=== PATIENT | male | born 1975 | race Caucasian/White ===

== ENCOUNTER 2016-10-03 17:28 | Emergency (ER) | payer OTHER ==
[~2016-10-03] VITALS: Ht 185.4 cm; Wt 115.5 kg
[~2016-10-03 17:28] MED LIST: ABILIFY5 MG PO; AMBIEN10 MG PO; AMITRIPTYLINE H50 MG PO; BACTRIM,SEPT1 TABLET PO; BUPROPION HCL150 M2 PO; BUSPAR10 MG PO; CYMBALTA60 MG PO; DEPAKOTE ER250 MG PO; DEPAKOTE250 MG PO; DEPAKOTE500 MG PO; DILAUDID2 MG PO; EFFEXOR75 MG PO; ESCITALOPRAM OX20 MG PO; FLEXERIL10 MG PO; HYDROCODON-ACE1 EAC7 PO; HYDROCODON-ACE1 EAC9 PO; IMITREX100 MG PO; LEVAQUIN750 MG PO; LEVOTHYROXINE200 MC1 PO; LEVOTHYROXINE50 MCG PO; LEXAPRO20 MG PO; LIBRIUM25 MG PO; LISINOPRIL PO; LISINOPRIL10 MG PO; LO-DOSE ASPIRIN81 M1 PO; LO-DOSE ASPIRIN81 M2 PO; LORTAB 5-325 M1 EACH PO; LYRICA50 MG; MARTINIC1 EACH PO; METHYLPREDNISOLO4 M1 PO; MORPHINE SULFAT15 M1 PO; MOTRIN400 MG PO; MOTRIN600 MG PO; MOTRIN800 MG PO; MS CONTIN,ORAMO15 M1 PO; MULTIVITAMIN1 EAC1 PO; NAPROSYN500 MG PO; NAPROXEN250 MG PO; OLANZAPINE5 MG PO; OXAYDO5 MG PO; OXCARBAZEPINE600 MG PO; OXYCODONE HCL10 MG PO; PERCOCET 10-321 EACH PO; PERCOCET 5/31 TABLET PO; PREDNISONE50 MG PO; PROMETHAZINE HC25 M1 PO; PROVENTIL HFA6.7 GM IH; RELPAX40 MG PO; SEROQUEL XR300 MG; SYNTHROID125 MCG PO; SYNTHROID175 MCG PO; SYNTHROID200 MCG PO; TIROSINT50 MCG PO; TORADOL10 MG PO; ULTRAM50 MG PO; VALIUM5 MG PO; VENLAFAXINE HCL75 M3 PO; VENTOLIN HFA18 GM IH; VERAPAMIL HCL240 MG PO; VERAPAMIL PO; VERAPAMIL SR180 MG PO; VICODIN,LORT1 TABLET PO; VITAMIN B650 MG PO; VYVANSE50 MG PO; XANAX0.25 MG PO; XANAX0.5 MG PO; ZESTRIL,PRINIVI10 MG PO; ZESTRIL10 MG PO; ZOLOFT100 MG PO; ZOLPIDEM TARTRA10 MG PO
[2016-10-03 18:26] LABS: HEMATOCRIT 41.5 % (38.0-50.0); MCH 31.8 PG (29.0-34.0); MCHC 35.9 G/DL (30.0-36.0); MCV 88.5 FL (86-99); MEAN PLAT.VOLUME 8.8 uM^3 (9.0-12.4); PLATELET COUNT 267 K/uL (156-360); RBC DIS.WIDTH-CV 12.8 % (11.8-14.6); RBC DIS.WIDTH-SD 40.4 % (39-53); RED BLOOD COUNT 4.69 M/uL (4.00-5.50); WHITE BLOOD COUNT 7.1 K/uL (4.1-10.2)
[2016-10-03 18:37] LABS: CHLORIDE 104 mEq/L (99-109); POTASSIUM 3.6 mEq/L (3.7-5.4); SODIUM 139 mEq/L (136-147)
[2016-10-03 18:40] LABS: GLUCOSE 103 mg/dL (70-99)
[2016-10-03 18:41] LABS: ANION GAP 10 MEQ/L (2-14)
[2016-10-03 18:42] LABS: TOTAL BILIRUBIN 0.8 mg/dL (0.0-1.0)
[2016-10-03 18:43] LABS: ALKALINE PHOSPHATASE 96 IU/L (3-129)
[2016-10-03 18:44] LABS: GFR ESTIMATE (CALCULATED) > 59 mL/min/
[2016-10-03 18:45] LABS: UREA NITROGEN (BUN) 6 mg/dL (9-23)
[2016-10-03 19:13] LABS: ADD MIUA? NO; BILIRUBIN NEGATIVE; BLOOD NEGATIVE; COLOR YELLOW ((YELLOW)); GLUCOSE (STRIP) NEGATIVE; KETONES NEGATIVE; LEUKOCYTES NEGATIVE; NITRITE NEGATIVE; PROTEIN (STRIP) NEGATIVE; SPECIFIC GRAVITY 1.008 (1.000-1.030); UCUL ADDED? NO; UROBILINOGEN 0.2 MG/DL (0.2-1.0)
[2016-10-03 19:40] LABS: LIPASE 22 U/L (1.0-51.0)
[2016-10-03] MEDS ORDERED: FLEXERIL10 MG PO (22:06)
[2016-10-03] MEDS ORDERED: BENTYL20 MG PO (22:06)
[2016-10-03] MEDS ORDERED: ZOFRAN ODT4 MG PO (22:06)
[2016-10-03 22:30] VITALS: BP 118/94
== END 2016-10-03 22:54 | disposition home or self-care (01) ==
LOC: EME 17:28
DX: R10.84 Generalized abdominal pain (principal); B34.9 Viral infection, unspecified; M62.838 Other muscle spasm; I10 Essential (primary) hypertension; G89.29 Other chronic pain; F17.200 Nicotine dependence, unspecified, uncomplicated
CPT/HCPCS: 74022; 80053; 81003; 83690; 85027; 93005; 99281; 99283; J1885; J3010; J7030

== ENCOUNTER 2016-10-05 16:15 | Emergency (ER) | payer OTHER ==
[~2016-10-05] VITALS: Ht 185.4 cm; Wt 127.3 kg
[~2016-10-05 16:15] MED LIST changes: +BENTYL20 MG PO; +ZOFRAN ODT4 MG PO
[2016-10-05 19:14] VITALS: BP 127/79
== END 2016-10-05 19:16 | disposition home or self-care (01) ==
LOC: EME 16:15
DX: F10.129 Alcohol abuse with intoxication, unspecified (principal); R10.9 Unspecified abdominal pain; W19.XXXA Unspecified fall, initial encounter; Y92.241 Library as the place of occurrence of the external cause; I10 Essential (primary) hypertension; Z85.850 Personal history of malignant neoplasm of thyroid; F17.200 Nicotine dependence, unspecified, uncomplicated
CPT/HCPCS: 70450; 71020; 99281; 99284

== ENCOUNTER 2016-11-12 15:48 | Emergency (ER) | payer OTHER ==
[~2016-11-12] VITALS: Ht 185.4 cm; Wt 116.9 kg
[2016-11-12 16:43] LABS: HEMATOCRIT 42.1 % (38.0-50.0); MCH 30.8 PG (29.0-34.0); MCHC 35.2 G/DL (30.0-36.0); MCV 87.5 FL (86-99); PLATELET COUNT 241 K/uL (156-360); RBC DIS.WIDTH-CV 12.5 % (11.8-14.6); RBC DIS.WIDTH-SD 40.1 % (39-53); RED BLOOD COUNT 4.81 M/uL (4.00-5.50); WHITE BLOOD COUNT 8.6 K/uL (4.1-10.2)
[2016-11-12 16:58] LABS: CHLORIDE 98 mEq/L (99-109); POTASSIUM 3.1 mEq/L (3.7-5.4); SODIUM 135 mEq/L (136-147)
[2016-11-12 16:59] LABS: MAGNESIUM 2.5 mg/dL (1.3-2.7)
[2016-11-12 17:00] LABS: GLUCOSE 113 mg/dL (70-99)
[2016-11-12 17:01] LABS: ANION GAP 18 MEQ/L (2-14)
[2016-11-12 17:04] LABS: GFR ESTIMATE (CALCULATED) > 59 mL/min/
[2016-11-12 17:05] LABS: UREA NITROGEN (BUN) 6 mg/dL (9-23)
[2016-11-12] MEDS ORDERED: LIBRIUM25 MG PO (21:52)
[2016-11-12 22:09] VITALS: BP 158/101
== END 2016-11-12 22:09 | disposition home or self-care (01) ==
LOC: EME → EDBD 15:48 → EME 15:48
PROVIDERS: Emergency Medicine
DX: R56.9 Unspecified convulsions (principal); F10.239 Alcohol dependence with withdrawal, unspecified; S46.912A Strain of unspecified muscle, fascia and tendon at shoulder and upper arm level, left arm, initial encounter; X58.XXXA Exposure to other specified factors, initial encounter; Y92.009 Unspecified place in unspecified non-institutional (private) residence as the place of occurrence of the external cause; G89.29 Other chronic pain; I10 Essential (primary) hypertension; Z85.850 Personal history of malignant neoplasm of thyroid; F17.200 Nicotine dependence, unspecified, uncomplicated
CPT/HCPCS: 70450; 71020; 73030; 73080; 80048; 83735; 85027; 93005; 99281; 99285; J1885; J3360; J7030

== ENCOUNTER 2017-01-29 12:39 | Emergency (ER) | payer OTHER ==
[~2017-01-29] VITALS: Ht 188 cm; Wt 123.6 kg
[2017-01-29 14:28] LABS: HEMATOCRIT 46.3 % (38.0-50.0); MCH 30.5 PG (29.0-34.0); MCHC 34.3 G/DL (30.0-36.0); MCV 88.7 FL (86-99); PLATELET COUNT 259 K/uL (156-360); RBC DIS.WIDTH-CV 13.4 % (11.8-14.6); RBC DIS.WIDTH-SD 43.5 % (39-53); RED BLOOD COUNT 5.22 M/uL (4.00-5.50); WHITE BLOOD COUNT 12.7 K/uL (4.1-10.2)
[2017-01-29 14:40] LABS: CHLORIDE 102 mEq/L (99-109); POTASSIUM 3.7 mEq/L (3.7-5.4); SODIUM 138 mEq/L (136-147)
[2017-01-29 14:42] LABS: GLUCOSE 107 mg/dL (70-99)
[2017-01-29 14:43] LABS: ANION GAP 12 MEQ/L (2-14)
[2017-01-29 14:45] LABS: GFR ESTIMATE (CALCULATED) > 59 mL/min/
[2017-01-29 14:46] LABS: UREA NITROGEN (BUN) 10 mg/dL (9-23)
[2017-01-29 14:49] LABS: TROP-I INTERPRETATION NEGATIVE; TROPONIN-I < 0.01 ng/mL (0.0-0.30)
[2017-01-29 16:12] LABS: D-DIMER ELISA 0.25 mg/L FEU (< 0.57)
[2017-01-29 18:00] LABS: TROP-I INTERPRETATION NEGATIVE; TROPONIN-I < 0.01 ng/mL (0.0-0.30)
[2017-01-29] MEDS ORDERED: ATARAX,VISTARIL50 MG PO (18:26)
[2017-01-29 18:45] VITALS: BP 138/90
== END 2017-01-29 18:55 | disposition home or self-care (01) ==
LOC: EME 12:39
PROVIDERS: Physician Assistant
DX: R07.9 Chest pain, unspecified (principal); F43.9 Reaction to severe stress, unspecified; I10 Essential (primary) hypertension; F17.200 Nicotine dependence, unspecified, uncomplicated
CPT/HCPCS: 71020; 80048; 84484; 85027; 85379; 93005; 99281; 99285; J1885; J2060; J7030

== ENCOUNTER 2017-02-14 17:11 | Inpatient (IN) | payer OTHER ==
[~2017-02-14] VITALS: Ht 188 cm; Wt 128.6 kg
[~2017-02-14 17:11] MED LIST changes: +ATARAX,VISTARIL50 MG PO
[2017-02-14 19:19] LABS: HEMATOCRIT 46.5 % (38.0-50.0); MCH 30.6 PG (29.0-34.0); MCHC 34.4 G/DL (30.0-36.0); MCV 88.9 FL (86-99); MEAN PLAT.VOLUME 8.8 uM^3 (9.0-12.4); PLATELET COUNT 294 K/uL (156-360); RBC DIS.WIDTH-CV 13.6 % (11.8-14.6); RBC DIS.WIDTH-SD 44.2 % (39-53); RED BLOOD COUNT 5.23 M/uL (4.00-5.50); WHITE BLOOD COUNT 10.2 K/uL (4.1-10.2)
[2017-02-14 19:35] LABS: CHLORIDE 103 mEq/L (99-109); POTASSIUM 3.7 mEq/L (3.7-5.4); SODIUM 144 mEq/L (136-147)
[2017-02-14 19:37] LABS: GLUCOSE 99 mg/dL (70-99)
[2017-02-14 19:38] LABS: ANION GAP 13 MEQ/L (2-14)
[2017-02-14 19:40] LABS: SERUM ETHYL ALCOHOL 257 mg/dL
[2017-02-14 19:41] LABS: GFR ESTIMATE (CALCULATED) > 59 mL/min/
[2017-02-14 19:43] LABS: UREA NITROGEN (BUN) 9 mg/dL (9-23)
[2017-02-14 19:44] LABS: SALICYLATE < 5.0 MG/DL (15-30)
[2017-02-15 03:14] LABS: AMPHETAMINE PRESUMPTIVE POSITIVE (500 ng/mL); BARBITURATES PRESUMPTIVE POSITIVE (200 ng/mL); BENZODIAZEPINES NEGATIVE (150 ng/mL); COCAINE NEGATIVE (150 ng/mL); INTERNAL CONTROLS VALID? YES; METHADONE NEGATIVE (200 ng/mL); METHAMPHETAMINE NEGATIVE (500 ng/mL); OPIATES (MORPHINE) NEGATIVE (100 ng/mL); OXYCODONE NEGATIVE (100 ng/mL); PHENCYCLIDINE NEGATIVE (25 ng/mL); PROPOXYPHENE NEGATIVE (300 ng/mL); THC CANNABINOIDS NEGATIVE (50 ng/mL); TRICYCLIC ANTIDEPRESSANTS PRESUMPTIVE POSITIVE (300 ng/mL)
[2017-02-15 03:15] LABS: ADD MEDTOX COMMENT Y
[2017-02-15] MEDS ORDERED: TRILEPTAL600 MG PO (12:09)
[2017-02-15 12:10] VITALS: BP 153/99
[2017-02-15] MEDS ORDERED: BUSPAR10 MG PO (12:11)
[2017-02-15] MEDS ORDERED: VYVANSE50 M1 PO (12:15)
[2017-02-15] MEDS ORDERED: BUPROPION HCL75 MG PO (12:16)
[2017-02-15 12:17] VITALS: BP 153/99
[2017-02-15 16:25] VITALS: BP 141/83
[2017-02-16 07:32] VITALS: BP 141/92
[2017-02-16 15:31] VITALS: BP 189/105
[2017-02-17 07:44] VITALS: BP 132/89
[2017-02-17] MEDS ORDERED: BUSPAR10 MG PO (10:44)
[2017-02-17] MEDS ORDERED: BUPROPION HCL75 MG PO (10:44)
== END 2017-02-17 13:30 | DRG 885 ==
LOC: EME 17:11 → 1WEST 02-15 11:18 → EDOF 02-15 11:18 → 1WEST 02-15 11:57
PROVIDERS: Emergency Medicine
PROC: 5A09357 Assistance with Respiratory Ventilation, Less than 24 Consecutive Hours, Continuous Positive Airway Pressure (ICD-10-PCS; principal; 2017-02-15)
DX: F33.9 Major depressive disorder, recurrent, unspecified (principal); F10.229 Alcohol dependence with intoxication, unspecified; Y90.8 Blood alcohol level of 240 mg/100 ml or more; I10 Essential (primary) hypertension; R45.851 Suicidal ideations; F15.10 Other stimulant abuse, uncomplicated; F17.200 Nicotine dependence, unspecified, uncomplicated; Z91.410 Personal history of adult physical and sexual abuse; Z91.5 Personal history of self-harm
CPT/HCPCS: 80048; 84999; 85027; 90839; 94660; 97150 GO; 97165 GO; 99281; 99285; G0480

== ENCOUNTER 2017-02-20 14:14 | Emergency (ER) | payer OTHER ==
[~2017-02-20] VITALS: Ht 188 cm; Wt 121.1 kg
[~2017-02-20 14:14] MED LIST changes: +BUPROPION HCL75 MG PO; +TRILEPTAL600 MG PO; +VYVANSE50 M1 PO
[2017-02-20] MEDS ORDERED: KEFLEX500 MG PO (16:41)
[2017-02-20] MEDS ORDERED: BACTRIM,SEPT1 TABLET PO (16:42)
[2017-02-20] MEDS ORDERED: NAPROSYN500 MG PO (17:04)
[2017-02-20 17:08] VITALS: BP 159/91
== END 2017-02-20 17:09 | disposition home or self-care (01) ==
LOC: EME 14:14
DX: L02.211 Cutaneous abscess of abdominal wall (principal); L73.9 Follicular disorder, unspecified; F17.200 Nicotine dependence, unspecified, uncomplicated
CPT/HCPCS: 99281; 99284

== ENCOUNTER 2017-06-12 20:25 | Emergency (ER) | payer OTHER ==
[~2017-06-12] VITALS: Ht 185.4 cm; Wt 118.7 kg
[~2017-06-12 20:25] MED LIST changes: +KEFLEX500 MG PO
[2017-06-12 20:58] LABS: HEMATOCRIT 37.4 % (38.0-50.0); MCH 31.1 PG (29.0-34.0); MCHC 35.8 G/DL (30.0-36.0); MCV 86.8 FL (86-99); MEAN PLAT.VOLUME 8.9 uM^3 (9.0-12.4); PLATELET COUNT 289 K/uL (156-360); RBC DIS.WIDTH-CV 12.3 % (11.8-14.6); RBC DIS.WIDTH-SD 39.3 % (39-53); RED BLOOD COUNT 4.31 M/uL (4.00-5.50); WHITE BLOOD COUNT 12.3 K/uL (4.1-10.2)
[2017-06-12 21:09] LABS: CHLORIDE 104 mEq/L (99-109); POTASSIUM 3.4 mEq/L (3.7-5.4); SODIUM 139 mEq/L (136-147)
[2017-06-12 21:11] LABS: GLUCOSE 135 mg/dL (70-99)
[2017-06-12 21:12] LABS: ANION GAP 12 MEQ/L (2-14)
[2017-06-12 21:15] LABS: GFR ESTIMATE (CALCULATED) > 59 mL/min/
[2017-06-12 21:16] LABS: UREA NITROGEN (BUN) 10 mg/dL (9-23)
[2017-06-12 21:19] LABS: TROP-I INTERPRETATION NEGATIVE; TROPONIN-I < 0.01 ng/mL (0.0-0.30)
[2017-06-12] MEDS ORDERED: NORCO 5/3251 TABLET PO (23:37)
[2017-06-12] MEDS ORDERED: FLEXERIL10 MG PO (23:42)
[2017-06-12 23:58] VITALS: BP 164/98
== END 2017-06-13 00:07 | disposition home or self-care (01) ==
LOC: EME 20:25
DX: R07.89 Other chest pain (principal); R06.00 Dyspnea, unspecified; R68.83 Chills (without fever); T38.0X5A Adverse effect of glucocorticoids and synthetic analogues, initial encounter; M25.551 Pain in right hip; J45.909 Unspecified asthma, uncomplicated; I10 Essential (primary) hypertension; F41.9 Anxiety disorder, unspecified; F31.9 Bipolar disorder, unspecified; Z85.850 Personal history of malignant neoplasm of thyroid; F17.200 Nicotine dependence, unspecified, uncomplicated
CPT/HCPCS: 71020; 73502; 80048; 84484; 85027; 93005; 99281; 99284

== ENCOUNTER 2017-10-31 09:21 | Emergency (ER) | payer OTHER ==
[~2017-10-31] VITALS: Ht 188 cm; Wt 114.4 kg
[~2017-10-31 09:21] MED LIST changes: +NORCO 5/3251 TABLET PO
[2017-10-31 10:29] LABS: BASOPHIL (%) 0.5 % (0-1); BASOPHIL COUNT 0.1 K/uL (0-0.1); EOSINOPHIL (%) 1.8 % (0-5); EOSINOPHIL COUNT 0.2 K/uL (0-0.3); HEMATOCRIT 38.7 % (38.0-50.0); HEMOGLOBIN 13.8 G/DL (12.5-16.6); IMMATURE GRANULOCYTE (%) 0.2 % (0.0-0.7); LYMPHOCYTE (%) 19.4 % (15-42); LYMPHOCYTE COUNT 2.1 K/uL (1.0-2.8); MCH 30.7 PG (29.0-34.0); MCHC 35.7 G/DL (30.0-36.0); MONOCYTE (%) 6.5 % (3-12); MONOCYTE COUNT 0.7 K/uL (0-0.8); NEUTROPHIL (%) 71.6 % (45-76); NEUTROPHIL COUNT 7.8 K/uL (1.8-6.4); PLATELET COUNT 314 K/uL (156-360); RBC DIS.WIDTH-CV 12.3 % (11.8-14.6); RBC DIS.WIDTH-SD 38.8 % (39-53); WHITE BLOOD COUNT 10.9 K/uL (4.1-10.2)
[2017-10-31 10:39] LABS: ALBUMIN 4.4 g/dL (3.2-4.8); CHLORIDE 106 mEq/L (99-109); POTASSIUM 3.6 mEq/L (3.7-5.4); SODIUM 139 mEq/L (136-147)
[2017-10-31 10:41] LABS: GLUCOSE 87 mg/dL (70-99); TOTAL PROTEIN 7.8 g/dL (6.4-8.3)
[2017-10-31 10:43] LABS: TOTAL BILIRUBIN 0.2 mg/dL (0.0-1.0)
[2017-10-31 10:45] LABS: ALKALINE PHOSPHATASE 121 IU/L (3-129); CREATININE 1.6 mg/dL (0.6-1.3); GFR ESTIMATE (CALCULATED) 51 mL/min/ (58.99-99999)
[2017-10-31 10:46] LABS: UREA NITROGEN (BUN) 23 mg/dL (9-23)
[2017-10-31 10:47] LABS: AST (GOT) 14 IU/L (2-34)
[2017-10-31 10:48] LABS: ALT (GPT) 19 IU/L (3-49)
[2017-10-31 11:23] LABS: APPEARANCE CLEAR ((CLEAR)); BILIRUBIN NEGATIVE; BLOOD LARGE; COLOR YELLOW ((YELLOW)); GLUCOSE (STRIP) NEGATIVE; KETONES NEGATIVE; LEUKOCYTES NEGATIVE; NITRITE NEGATIVE; PROTEIN (STRIP) NEGATIVE; SPECIFIC GRAVITY 1.005 (1.000-1.030); UROBILINOGEN 0.2 MG/DL (0.2-1.0)
[2017-10-31 11:33] LABS: BACTERIA 1+ /HPF; EPITHELIAL CELLS NONE SEEN /HPF; MUCUS NONE SEEN /LPF; UCUL ADDED? NO; WHITE BLOOD CELLS 0-5 /HPF (0-5)
[2017-10-31] MEDS ORDERED: FLOMAX0.4 MG PO (12:04)
[2017-10-31 12:41] VITALS: BP 124/80
== END 2017-10-31 12:44 | disposition home or self-care (01) ==
LOC: EME 09:21
PROVIDERS: Emergency Medicine
DX: I86.1 Scrotal varices (principal); N20.0 Calculus of kidney; J45.909 Unspecified asthma, uncomplicated; I10 Essential (primary) hypertension; F41.9 Anxiety disorder, unspecified; F31.9 Bipolar disorder, unspecified; R56.9 Unspecified convulsions; Z85.850 Personal history of malignant neoplasm of thyroid; F17.200 Nicotine dependence, unspecified, uncomplicated
CPT/HCPCS: 74176; 76870; 80053; 81003; 85025; 93975; 99281; 99285; J1885; J2270; J7030

== ENCOUNTER 2018-04-05 18:12 | Emergency (ER) | payer OTHER ==
[~2018-04-05] VITALS: Ht 188 cm; Wt 112.3 kg
[~2018-04-05 18:12] MED LIST changes: +FLOMAX0.4 MG PO
[2018-04-05] MEDS ORDERED: KEFLEX500 MG PO (20:42)
[2018-04-05] MEDS ORDERED: BACTRIM,SEPT1 TABLET PO (20:43)
[2018-04-05 21:14] VITALS: BP 138/98
== END 2018-04-05 21:15 | disposition home or self-care (01) ==
LOC: EME 18:12
PROC: 3E0234Z Introduction of Serum, Toxoid and Vaccine into Muscle, Percutaneous Approach (ICD-10-PCS; principal; 2018-04-05)
DX: S51.802A Unspecified open wound of left forearm, initial encounter (principal); S51.801A Unspecified open wound of right forearm, initial encounter; S41.002A Unspecified open wound of left shoulder, initial encounter; L03.114 Cellulitis of left upper limb; L03.113 Cellulitis of right upper limb; Z23 Encounter for immunization; E03.9 Hypothyroidism, unspecified; F17.200 Nicotine dependence, unspecified, uncomplicated
CPT/HCPCS: 73090; 99281; 99283; J1885